=== PATIENT | male | born 1950 | race Caucasian/White ===

== ENCOUNTER 2022-08-15 09:43 | Day surgery (SDC) | payer MEDICARE ==
[~2022-08-15] VITALS: Ht 175.3 cm; Wt 70.3 kg
[2022-08-15 10:00] VITALS: BP 144/92
[2022-08-15] MEDS ORDERED: normal saline 1000ml 1,000 ML IV SCH (10:05)
[2022-08-15] MEDS ORDERED: MIDAZolam 1mg/ml 10ml vial IV ONE (10:05)
[2022-08-15] MEDS ORDERED: fentaNYL/PF 50MCG/1 ML 2ML syringe IV ONE (10:10)
[2022-08-15] MEDS ORDERED: glycopyrrolate 0.2mg/ml inj IV ONE (10:10)
[2022-08-15] MEDS ORDERED: ASCO500C17 PO (10:19)
[2022-08-15] MEDS ORDERED: TURM500C4 PO (10:19)
[2022-08-15] MEDS ORDERED: FLEC50TA28 PO (10:19)
[2022-08-15] MEDS ORDERED: CHOL500049 PO (10:19)
--- NOTE | 2022-08-15 10:20 | NUR ---
EKG performed. EKG shows sinus tach w/some PVCs. Notified Dr. Beard. Dr. Beard states to cancel procedure and patient can go home. Patient to be seen within 2 weeks for follow up.
== END 2022-08-15 10:40 | disposition home or self-care (01) ==
LOC: SSTAY O 09:43
PROVIDERS: ATTEND Internal Medicine Cardiovascular Disease
DX: I48.11 Longstanding persistent atrial fibrillation (principal); Z53.8 Procedure and treatment not carried out for other reasons
CPT/HCPCS: 93005; A4620; J7030